=== PATIENT | female | born 2005 | race Caucasian/White ===

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

== ENCOUNTER → 2024-09-07 | Outpatient (REF) ==
[~2024-09-07] MED LIST changes: +TOPI-256; -TOPI25TA10
== END ==
LOC: M LAB REF 14:28
DX: Z34.90 Encounter for supervision of normal pregnancy, unspecified, unspecified trimester (principal)

== ENCOUNTER 2024-09-11 19:06 | Emergency (ER) | payer OTHER ==
[~2024-09-11] VITALS: Ht 152.4 cm; Wt 76.2 kg
[2024-09-11 19:15] VITALS: BP 134/65; TEMP 97.8; O2SAT 100
== END 2024-09-11 19:24 | disposition left against medical advice (07) ==
LOC: M ED 19:06
DX: Z53.21 Procedure and treatment not carried out due to patient leaving prior to being seen by health care provider (principal)